=== PATIENT | female | born 2000 | race Caucasian/White ===

== ENCOUNTER 2019-09-22 06:30 | Outpatient (CLI) | payer BC, OTHER ==
[2019-09-22 14:09] LABS: BHCG - Serum Negative (NEGATIVE); Pregs Control Background? CLEAR/WHITE (CLR/WHITE); Pregs Control Bar Appear? YES (CONTROL BAR)
[2019-09-23 12:08] LABS: SARS-CoV-2 MS2 Positive; SARS-CoV-2 N Gene Negative; SARS-CoV-2 S Gene Negative; SARS-CoV-2 by NAA Not Detected (NotDetected); SARS-CoV-2 orf1ab Negative
== END 2019-09-22 06:31 | disposition home or self-care (01) ==
LOC: LABBT 06:30
PROVIDERS: ATTEND Surgery
DX: Z01.812 Encounter for preprocedural laboratory examination (principal); Z11.59 Encounter for screening for other viral diseases; N90.89 Other specified noninflammatory disorders of vulva and perineum
CPT/HCPCS: 84703; 87635; U0003

== ENCOUNTER 2019-09-27 07:27 | Day surgery (SDC) | payer BC ==
[2019-09-20 15:40] VITALS: BMI 21.4
[2019-09-27] MEDS ORDERED: Midazolam HCl 2 mg/2 ml Vial ONE (08:33)
[2019-09-27] MEDS ORDERED: Lidocaine 1% w/Epinephrine 1:100K 20 ML VIAL ONE (08:43)
[2019-09-27] MEDS ORDERED: Bupivacaine 0.25% HCL 30 ML VIAL ONE (08:43)
[2019-09-27] MEDS ORDERED: Levofloxacin 500 mg/D5W 100 ml Premix Bag ONE (08:44)
[2019-09-27] MEDS ORDERED: Fentanyl 100 MCG/2 ML VIAL ONE (08:49)
[2019-09-27] MEDS ORDERED: Meperidine HCl/PF 25 MG/ML VIAL ONE (10:23)
[2019-09-27] MEDS ORDERED: Dexamethasone 20 MG/5 ML VIAL ONE (11:06)
[2019-09-27] MEDS ORDERED: Ketorolac Tromethamine 30 MG/ML VIAL ONE (11:06)
[2019-09-27] MEDS ORDERED: Lidocaine 1% PF 5 ML VIAL ONE (11:06)
[2019-09-27] MEDS ORDERED: EPHEDRINE 25 MG/5 ML SYRINGE ONE (11:06)
[2019-09-27] MEDS ORDERED: PROPOFOL 200 MG/20 ML VIAL ONE (11:06)
[2019-09-27] MEDS ORDERED: Ondansetron PF 4 MG/2 ML Vial ONE ×2 (11:06→12:25)
[2019-09-27] MEDS ORDERED: Ondansetron ODT 4 MG TAB ONE (12:06)
--- NOTE | 2019-09-28 02:09 | OP ---
DATE OF PROCEDURE: 09/27/2019 PREOPERATIVE DIAGNOSIS: Soft tissue mass, 10 cm, left perineum. POSTOPERATIVE DIAGNOSIS: Soft tissue mass, 10 cm, left perineum. PROCEDURES PERFORMED: Excision of soft tissue mass, 10 cm, subcutaneous tissues of left perineum and drain placement. ANESTHESIA: General. ESTIMATED BLOOD LOSS: Minimal. COMPLICATIONS: None. SPECIMEN: Soft tissue mass. DESCRIPTION OF PROCEDURE: The patient was taken to the operating room and laid supine on the operating room table. After general anesthetic was obtained, the patient was placed in lithotomy position. The perineum was prepped and draped in a sterile fashion. An incision was made vertically over this large soft tissue mass. It was dissected free from surrounding structures and removed in its entirety in one piece. It was sent to [facility] for final diagnosis. Meticulous hemostasis was obtained. The wound was irrigated. A #10 drain was brought out through a separate stab incision and sewn in place using a silk suture. The wound was closed using 3-0 Vicryl, 4-0 Monocryl, and Dermabond. The patient was sent to Recovery in stable condition. All instrument counts, needle counts, and lap counts were correct. Job ID: [id number]
== END 2019-09-27 12:47 | disposition home or self-care (01) ==
LOC: SDC 07:27
PROVIDERS: ATTEND Surgery
PROC: 0JBC0ZZ Excision of Pelvic Region Subcutaneous Tissue and Fascia, Open Approach (ICD-10-PCS; principal; 2019-09-27)
DX: D17.1 Benign lipomatous neoplasm of skin and subcutaneous tissue of trunk (principal); F41.9 Anxiety disorder, unspecified; F32.9 Major depressive disorder, single episode, unspecified; Z79.899 Other long term (current) drug therapy
CPT/HCPCS: 88304; J1100; J1885; J1956; J2175; J2250; J2405; J2704; J3010; Q0162; S0020

== ENCOUNTER 2021-04-02 09:08 | Emergency (ER) | payer OTHER, SELFPAY ==
[2021-04-02] MEDS ORDERED: Acetaminophen 325 MG TAB ONE (11:55)
== END 2021-04-02 13:24 | disposition home or self-care (01) ==
LOC: ERS 09:08
DX: S00.83XA Contusion of other part of head, initial encounter (principal); W22.8XXA Striking against or struck by other objects, initial encounter
CPT/HCPCS: 70450